=== PATIENT | female | born 1985 | race Caucasian/White ===

== ENCOUNTER 2018-02-27 20:55 | Outpatient (CLI) | payer OTHER ==
[~2018-02-27 20:55] MED LIST: ALPR.25T PO; CARB100T PO; CETI10CA PO; CTLP20T PO; FLT05NA16 NS; FLVX50T PO; HYDR1CAP2 PO; KEFLEX PO; NAPR250T PO; ORPH100T PO; QUET400T PO; RABE20TA PO; SRTR100T PO; ST JOHNS WART PO; SULF1TAB23 PO; TRAM50TA2 PO
== END 2018-02-28 06:34 | disposition home or self-care (01) ==
LOC: SLEEP 20:55
PROVIDERS: ATTEND Nurse Practitioner Family
DX: G47.33 Obstructive sleep apnea (adult) (pediatric) (principal)
CPT/HCPCS: 95810

== ENCOUNTER 2019-06-15 02:33 | Emergency (ER) | payer OTHER ==
--- NOTE | 2019-06-15 03:31 | NUR ---
PT REPORTED TO HAVE COME TO THE REGISTRAITION DESK AND SIGNED LWBS. ADVISED OF THE RISKS OF THIS CHOICE, SIGNED AMA FORM
== END 2019-06-15 03:05 | disposition left against medical advice (07) ==
LOC: EDUNIT# 02:33 → ER 02:37
DX: M54.9 Dorsalgia, unspecified (principal)

== ENCOUNTER 2020-12-31 14:05 | Emergency (ER) | payer SELFPAY ==
[~2020-12-31] VITALS: Ht 157.5 cm; Wt 72.6 kg
[2020-12-31] MEDS ORDERED: DICYCLOMINE 10 MG/ML (BENTYL) 2 ML AMP IM STA (14:20)
[2020-12-31 14:35] LABS: BASOPHILS # (AUTO) 0.1 10^3/uL (0.0-0.1); BASOPHILS % (AUTO) 0 % (0-10); EOSINOPHILS # (AUTO) 0.3 10^3/uL (0.0-0.3); EOSINOPHILS % (AUTO) 2 % (0-10); HEMATOCRIT 41 % (35-52); HEMOGLOBIN 13.3 g/dL (11.5-16.0); LYMPHOCYTES # (AUTO) 4.4 X 10^3 (1.0-4.0); LYMPHOCYTES % (AUTO) 38 % (12-44); MEAN CORPUSCULAR HEMOGLOBIN 28 pg (25-34); MEAN CORPUSCULAR HGB CONC 33 g/dL (32-36); MEAN CORPUSCULAR VOLUME 86 fL (80-99); MEAN PLATELET VOLUME 9.4 fL (9.0-12.2); MONOCYTES # (AUTO) 0.8 X 10^3 (0.0-1.0); MONOCYTES % (AUTO) 7 % (0-12); NEUTROPHILS % (AUTO) 52 % (42-75); PLATELET COUNT 401 10^3/uL (130-400); WHITE BLOOD COUNT 11.5 10^3/uL (4.3-11.0)
[2020-12-31 14:48] LABS: ALBUMIN 4.2 GM/DL (3.2-4.5); CHLORIDE 112 MMOL/L (98-107); POTASSIUM 3.5 MMOL/L (3.6-5.0); SODIUM 147 MMOL/L (135-145)
[2020-12-31 14:49] LABS: CALCIUM 9.5 MG/DL (8.5-10.1)
[2020-12-31 14:50] LABS: GLUCOSE 117 MG/DL (70-105)
[2020-12-31 14:51] LABS: TOTAL PROTEIN 7.5 GM/DL (6.4-8.2)
[2020-12-31 14:52] LABS: BILIRUBIN,TOTAL 0.4 MG/DL (0.1-1.0); CARBON DIOXIDE 24 MMOL/L (21-32)
[2020-12-31 14:54] LABS: ALKALINE PHOSPHATASE 93 U/L (40-136); CREATININE SERUM 0.83 MG/DL (0.60-1.30); GFR ESTIMATED > 60
[2020-12-31 14:55] LABS: BUN/CREATININE RATIO 12
[2020-12-31 14:57] LABS: ALANINE AMINOTRANSFERASE 48 U/L (0-55); LIPASE 133 U/L (8-78)
--- NOTE | 2020-12-31 15:00 | ED Abdominal Pain ---
General Chief Complaint: Abdominal/GI Problems Stated Complaint: ABD PAIN Nursing Triage Note: PT BROUGHT IN BY [facility] FROM [facility] WITH COMPLAINT OF SUDDEN ONSET ABD PAIN AND NAUSEA. PT STATES PAIN STARTED SUDDENLY AFTER EATING LUNCH IN EPIGASTRIC REGION. LAST BM THIS MORNING. PT WAS GIVEN 50 FENTANYL AND 4 ZOFRAN BY EMS. Sepsis Screen: No Definite Risk Source of Information: Patient, EMS Exam Limitations: No Limitations History of Present Illness Date Seen by Provider: December 31, 2020 Time Seen by Provider: 14:08 Initial Comments Patient is a 35-year-old female who presents to the emergency department today with a chief complaint of epigastric and right upper quadrant abdominal pain. Patient states the pain started shortly after eating some ham salad and cottage cheese while at work today. She began feeling hot and clammy and like she was going to pass out. She states shortly after the hot and clammy sensation she had an acute onset of the pain followed by nausea. She has never had pain quite like this before. She has had an episode of pancreatitis in the past many years ago and she states the pain is slightly reminiscent of this. She has no chronic illnesses. No recent fevers, chills, nausea or vomiting or diarrhea. No problems with urination. States that she cannot be , takes the Depo shot. Denies any trauma. States her nausea is improved after EMS gave her nausea medications and fentanyl. Currently rating her pain a "7". All other review of systems reviewed and negative except as stated above. Timing/Duration: 1-3 Hours Severity/Quality: Severe, Aching, Stabbing Location: Epigastric Radiation: Back Activities at Onset: Activity Modifying Factors: Improves With Analgesics, Improves With Lying down Associated Symptoms: Diaphoresis, Nausea/Vomiting, Weakness Allergies and Home Medications Allergies Coded Allergies: No Known Drug Allergies (Unverified , 04/24/10) Home Medications Cetirizine Hcl 10 Mg Capsule, 10 MG PO DAILY, (Reported) Dicyclomine HCl 20 Mg Tablet, 20 MG PO Q6H PRN for abdominal pain Prescribed by: KISHAN AU on 12/31/20 151 Fluticasone Propionate 16 Gm [place], 1 SPRAY NS BID, (Reported) Naproxen 250 Mg Tablet, 250 MG PO TID Prescribed by: JASON SCHULTZ on 10/17/141949 Ondansetron 4 Mg Tab.rapdis, 4 MG PO Q8H PRN for nausea and vomiting Prescribed by: KISHAN AU on 12/31/20 1518 Orphenadrine Citrate 100 Mg Tablet.sa, 100 MG PO BID PRN for PAIN Prescribed by: JASON SCHULTZ on 10/17/141949 Sertraline Hcl 100 Mg Tab, 100 MG PO DAILY, (Reported) Sulfamethoxazole/Trimethoprim 1 Tab Tablet, 1 TAB PO BID Prescribed by: LAZARO HURD on 12/15/131901 Tramadol Hcl 50 Mg Tablet, 50 MG PO Q4H PRN for PAIN Prescribed by: LAZARO HURD on 12/15/131901 [[facility]] , 1 TAB PO BID, (Reported) Patient Home Medication List Home Medication List Reviewed: Yes Review of Systems Review of Systems Constitutional: see HPI EENTM: No Symptoms Reported Respiratory: No Symptoms Reported Cardiovascular: No Symptoms Reported Gastrointestinal: Abdominal Pain, Nausea Genitourinary: No Symptoms Reported Musculoskeletal: no symptoms reported Skin: other (Diaphoresis) Psychiatric/Neurological: No Symptoms Reported All Other Systems Reviewed Negative Unless Noted: Yes Past Usvulsq-Askqet-Fltusf Hx Patient Social History Alcohol Use: Denies Use Smoking Status: Current Everyday Smoker Type Used: Cigarettes Recent Infectious Disease Expo: No Immunizations Up To Date Tetanus Booster (TDap): Less than 5yrs Seasonal Allergies Seasonal Allergies: Yes Past Medical History Surgeries: Yes (SOFT CLEFT PALATE SURG, FINGER) Respiratory: No Cardiac: No Neurological: No Reproductive Disorders: No Gastrointestinal: No Musculoskeletal: No Endocrine: No Cancer: No Psychosocial: Yes Anxiety, Bipolar Integumentary: No Blood Disorders: No Family Medical History Hypertension Physical Exam Vital Signs Vital Signs - First Documented 12/31/20 14:05 Pulse 77 Resp 18 B/P (MAP) 143/99 (114) Pulse Ox 100 O2 Delivery Room Air Capillary Refill : Less Than 3 Seconds Height/Weight/BMI Height: 5'2" Weight: 115lbs. oz. 52.774187zd; 29.00 BMI Method:Stated General Appearance: WD/WN, mild distress HEENT: PERRL/EOMI Neck: full range of motion Respiratory: lungs clear, normal breath sounds, no respiratory distress Cardiovascular: regular rate, rhythm Gastrointestinal: soft, abnormal bowel sounds, tenderness (Epigastric and right upper quadrant tenderness) Neurologic/Psychiatric: alert, normal mood/affect, oriented x 3 Skin: normal color, warm/dry Progress/Results/Core Measures Results/Orders Lab Results Laboratory Tests Test 12/31/20 14:22 Range/Units White Blood Count 11.5 H 4.3-11.0 10^3/uL Red Blood Count 4.70 3.80-5.11 10^6/uL Hemoglobin 13.3 11.5-16.0 g/dL Hematocrit 41 35-52 % Mean Corpuscular Volume 86 80-99 fL Mean Corpuscular Hemoglobin 28 25-34 pg Mean Corpuscular Hemoglobin Concent 33 32-36 g/dL Red Cell Distribution Width 14.5 10.0-14.5 % Platelet Count 401 H 130-400 10^3/uL Mean Platelet Volume 9.4 9.0-12.2 fL Immature Granulocyte % (Auto) 0 % Neutrophils (%) (Auto) 52 42-75 % Lymphocytes (%) (Auto) 38 12-44 % Monocytes (%) (Auto) 7 0-12 % Eosinophils (%) (Auto) 2 0-10 % Basophils (%) (Auto) 0 0-10 % Neutrophils # (Auto) 6.0 1.8-7.8 X 10^3 Lymphocytes # (Auto) 4.4 H 1.0-4.0 X 10^3 Monocytes # (Auto) 0.8 0.0-1.0 X 10^3 Eosinophils # (Auto) 0.3 0.0-0.3 10^3/uL Basophils # (Auto) 0.1 0.0-0.1 10^3/uL Immature Granulocyte # (Auto) 0.0 0.0-0.1 10^3/uL Sodium Level 147 H 135-145 MMOL/L Potassium Level 3.5 L 3.6-5.0 MMOL/L Chloride Level 112 H 98-107 MMOL/L Carbon Dioxide Level 24 21-32 MMOL/L Anion Gap 11 5-14 MMOL/L Blood Urea Nitrogen 10 7-18 MG/DL Creatinine 0.83 0.60-1.30 MG/DL Estimat Glomerular Filtration Rate > 60 BUN/Creatinine Ratio 12 Glucose Level 117 H 70-105 MG/DL Calcium Level 9.5 8.5-10.1 MG/DL Corrected Calcium 9.3 8.5-10.1 MG/DL Total Bilirubin 0.4 0.1-1.0 MG/DL Aspartate Amino Transf (AST/SGOT) 50 H 5-34 U/L Alanine Aminotransferase (ALT/SGPT) 48 0-55 U/L Alkaline Phosphatase 93 40-136 U/L Total Protein 7.5 6.4-8.2 GM/DL Albumin 4.2 3.2-4.5 GM/DL Lipase 133 H 8-78 U/L My Orders Orders - KISHAN AU MD Cbc With Automated Diff (12/31/20 14:17) Comprehensive Metabolic Panel (12/31/20 14:17) Lipase (12/31/20 14:17) Ed Iv/Invasive Line Start (12/31/20 14:17) Dicyclomine Injection (Bentyl Injection) (12/31/20 14:20) Fentanyl Inj (Sublimaze Injection) (12/31/20 15:30) Fentanyl Inj (Sublimaze Injection) (12/31/20 15:16) Us Gallbladder [id number] (12/31/20 15:44) Morphine Injection (Morphine Injection (12/31/20 17:11) Medications Given in ED Current Medications Medications Dose Ordered Sig/Ruben Route Start Time Stop Time Status Last Admin Dose Admin Fentanyl Citrate 50 mcg ONCE ONCE IVP 12/31/20 15:30 12/31/20 15:31 DC 12/31/20 15:23 50 MCG Vital Signs/I&O 12/31/20 14:05 Pulse 77 Resp 18 B/P (MAP) 143/99 (114) Pulse Ox 100 O2 Delivery Room Air Blood Pressure Mean: 114 Progress Progress Note : Time: 15:18 Progress Note Patient reports her pain is improved down to a "5". Patient states that she feels comfortable to go home and sleep. I have advised the patient to follow-up closely with [facility] to see about getting a gallbladder ultrasound. I am sending her home with prescriptions for Bentyl and Zofran. I have advised her to avoid fatty foods. She verbalizes understanding. Patient has no clinical or objective findings to warrant further studies from the emergency department at this time. All questions are sought and answered. Patient is stable for discharge. 1545 Notified by nursing staff that the patient had an increase in her pain just prior to discharge. 50 mcg of fentanyl is given. Gallbladder ultrasound is ordered. 1718 Patient's gallbladder ultrasound has been reviewed, she has multiple tiny stones versus sludge in the gallbladder without evidence of pericholecystic fluid, gallbladder wall thickening or common bile duct dilatation. Patient will be sent home as previously dictated. Will encourage follow-up with her primary care as she may ultimately need a HIDA scan. Patient is treated with 4 mg of morphine here in the emergency department with better resolution of her pain symptoms. Diagnostic Imaging Diagonstic Imaging: Ultrasound Comments [facility] [place] NAME: RANDY TROY [facility] REC#: [id number] PT STATUS: REG ER : 1985 PHYSICIAN: KISHAN AU MD ADMIT DATE: 12/31/20/ER Draft Date of Exam:12/31/20 US GALLBLADDER [id number] PROCEDURE: US Gallbladder. TECHNIQUE: Multiple real-time grayscale images were obtained over the right upper quadrant in various projections. INDICATION: Right upper quadrant pain, nausea, vomiting. COMPARISON: None available. FINDINGS: The liver demonstrates diffusely increased echogenicity throughout with poor acoustic transmission without focal hepatic mass. Normal direction of flow within the main portal vein. Multiple tiny hyperechoic filling defects are noted associated with the gallbladder wall, felt related to minimal sludge and/or stones versus very tiny polyps. No evidence of gallbladder wall thickening or pericholecystic fluid. The common bile duct is within normal limits measuring 0.4 cm. The pancreas is not well seen secondary to overlying bowel gas. Visualized portions of the abdominal aorta and inferior vena cava are unremarkable. The right kidney is unremarkable without evidence of hydronephrosis. No significant free fluid. The stomach is noted to be filled with fluid and enteric contents. IMPRESSION: No evidence of acute cholecystitis with minimal sludge and/or stones versus very tiny gallbladder polyps present. Fatty infiltration of the liver. The stomach is filled with fluid and enteric contents though the patient has been nothing by mouth for approximately 4-5 hours. This could relate to delayed gastric emptying versus bowel obstruction versus the patient not actually being nothing by mouth for 4-5 hours. Dictated on workstation # [id number] Dict: 12/31/20 1657 Trans: 12/31/20 1712 [facility] [id number] Interpreted by: VIBHA VITALE MD Electronically signed by: Departure Impression Primary Impression: Abdominal pain Qualified Codes: R10.11 - Right upper quadrant pain Additional Impression: Biliary colic Disposition: 01 HOME, SELF-CARE Condition: Stable Departure-Patient Inst. Decision time for Depature: 15:13 Referrals: [facility] (PCP/Family) Primary Care Physician Patient Instructions: Abdominal Pain, Adult ED Add. Discharge Instructions: Avoid fatty foods because they will irritate your gallbladder. Take the bentyl every 6 hours, 30minutes before eating. This will help for pain. Zofran as needed for nausea and vomiting. Come back to the Emergency Department if you have any return of worsening pain, especially with fever, vomiting, or other emergent concerns. Follow up with [facility] to see about getting an ultrasound of your gallbladder. Scripts Hydrocodone/Acetaminophen (Hydrocodone-Acetamin 5-325 mg) 1 Each Tablet 1 TAB PO Q6H PRN for PAIN-MODERATE (5-7), #12 TAB Prov: KISHAN AU MD 12/31/20 Ondansetron (Ondansetron Odt) 4 Mg Tab.rapdis 4 MG PO Q8H PRN for nausea and vomiting, #20 TAB Prov: KISHAN AU MD 12/31/20 Dicyclomine HCl (Dicyclomine HCl) 20 Mg Tablet 20 MG PO Q6H PRN for abdominal pain, #30 TAB Prov: KISHAN AU MD 12/31/20 KISHAN AU MD December 31, 2020 15:00
[2020-12-31] MEDS ORDERED: fentaNYL INJ 100 MCG/2 ML AMP ONE (15:16)
[2020-12-31] MEDS ORDERED: ONDA4TAB11 PO (15:18)
[2020-12-31] MEDS ORDERED: DICY20TA10 PO (15:18)
[2020-12-31] MEDS ORDERED: fentaNYL INJ 100 MCG/2 ML AMP IVP ONE (15:30)
[2020-12-31] MEDS ORDERED: morphine INJ 10 MG/ML 1ML (SYR OR VIAL) IVP STA (17:11)
--- NOTE | 2020-12-31 17:12 | Diagnostic Imaging Report ---
PROCEDURE: US Gallbladder. TECHNIQUE: Multiple real-time grayscale images were obtained over the right upper quadrant in various projections. INDICATION: Right upper quadrant pain, nausea, vomiting. COMPARISON: None available. FINDINGS: The liver demonstrates diffusely increased echogenicity throughout with poor acoustic transmission without focal hepatic mass. Normal direction of flow within the main portal vein. Multiple tiny hyperechoic filling defects are noted associated with the gallbladder wall, felt related to minimal sludge and/or stones versus very tiny polyps. No evidence of gallbladder wall thickening or pericholecystic fluid. The common bile duct is within normal limits measuring 0.4 cm. The pancreas is not well seen secondary to overlying bowel gas. Visualized portions of the abdominal aorta and inferior vena cava are unremarkable. The right kidney is unremarkable without evidence of hydronephrosis. No significant free fluid. The stomach is noted to be filled with fluid and enteric contents. IMPRESSION: No evidence of acute cholecystitis with minimal sludge and/or stones versus very tiny gallbladder polyps present. Fatty infiltration of the liver. The stomach is filled with fluid and enteric contents though the patient has been nothing by mouth for approximately 4-5 hours. This could relate to delayed gastric emptying versus bowel obstruction versus the patient not actually being nothing by mouth for 4-5 hours. Dictated by: Dictated on workstation # [id number]
[2020-12-31] MEDS ORDERED: ACHD5005 PO (17:20)
[2020-12-31 18:03] VITALS: BP 140/86
== END 2020-12-31 18:03 | disposition home or self-care (01) ==
LOC: EDUNIT# 14:13 → ER 14:14
DX: K80.50 Calculus of bile duct without cholangitis or cholecystitis without obstruction (principal); F41.9 Anxiety disorder, unspecified; F17.210 Nicotine dependence, cigarettes, uncomplicated; Z79.899 Other long term (current) drug therapy
CPT/HCPCS: 36415; 76705; 80053; 83690; 85025

== ENCOUNTER → 2021-02-07 | Outpatient (CLI) | payer OTHER ==
[~2021-02-07] MED LIST changes: +ACHD5005 PO; +CATHETER FLUSH 10 ML SYR IV PRN; +DICY20TA10 PO; +ONDA4TAB11 PO
--- NOTE | 2021-02-07 15:56 | Diagnostic Imaging Report ---
EXAMINATION: Gallbladder scintigraphy HISTORY: Abdominal pain. COMPARISON: Gallbladder ultrasound 12/31/2020. TECHNIQUE: Anterior scintigraphic imaging of the abdomen was performed after the intravenous administration of 4.55 mCi Tc-99m Choletec. FINDINGS: The upper abdomen was imaged for 130 minutes with the gamma camera. There is prompt homogeneous uptake of radiopharmaceutical by the liver. There is activity in the common duct by 15 minutes. There is delayed filling of the gallbladder, seen by 75 minutes. Small bowel activity is seen by 15 minutes. At 55 minutes, the patient received 8 ounces of ensure. After an additional 60 minutes, the gallbladder ejection fraction was calculated to be 86% (normal is >35%) IMPRESSION: 1. Delayed filling of the gallbladder which can be seen with chronic cholecystitis. 2. Normal gallbladder ejection fraction. Dictated by: Dictated on workstation # [id number]
== END ==
LOC: CARD 11:23
PROVIDERS: ATTEND Nurse Practitioner Family
DX: R10.9 Unspecified abdominal pain (principal)
CPT/HCPCS: 78227; A9537

== ENCOUNTER 2021-02-13 05:37 | Outpatient (CLI) | payer OTHER ==
[~2021-02-13] VITALS: Ht 157.5 cm; Wt 70.2 kg
[~2021-02-13 05:37] MED LIST changes: -CATHETER FLUSH 10 ML SYR IV PRN
[2021-02-13] MEDS ORDERED: OMEP20TA7 PO (13:35)
[2021-02-13] MEDS ORDERED: ESCI20TA39 PO (13:35)
[2021-02-13] MEDS ORDERED: ROPI0.253 PO (13:35)
== END 2021-02-13 13:40 | disposition home or self-care (01) ==
LOC: PREOP 05:37
PROVIDERS: ATTEND Surgery
DX: Z01.818 Encounter for other preprocedural examination (principal)

== ENCOUNTER 2021-02-20 07:00 | Day surgery (SDC) | payer OTHER ==
[~2021-02-20] VITALS: Ht 157 cm; Wt 70.2 kg
[2021-02-20] VITALS (11 sets, daily range): BP systolic 106–141; BP diastolic 81–93
[~2021-02-20 07:00] MED LIST changes: +ESCI20TA39 PO; +OMEP20TA7 PO; +ROPI0.253 PO
[2021-02-20] MEDS ORDERED: ceFAZolin 2 GM IV Premixed 50 ML IV ONE (07:15)
[2021-02-20] MEDS ORDERED: ROCURONIUM 10 MG/ML 5 ML SYRINGE IV ONE (07:21)
[2021-02-20] MEDS ORDERED: ONDANSETRON 4 MG/2 ML (SDV) Z0FRAN ONE ×2 (07:21→09:17)
[2021-02-20] MEDS ORDERED: proPOfol 200 MG/20 ML (DIPRIVAN) VIAL IV ONE (07:21)
[2021-02-20] MEDS ORDERED: LIDOCAINE PF 2% 5 ML (XYLOCAINE) VIAL ONE (07:21)
[2021-02-20] MEDS ORDERED: SEVOFLURANE (ULTANE) 15 ML INHAL SOLN ONE ×2 (07:21→08:48)
[2021-02-20] MEDS ORDERED: MIDAZOLAM 2 MG/2 ML (VERSED) VIAL ONE (07:22)
[2021-02-20] MEDS ORDERED: fentaNYL INJ 100 MCG/2 ML AMP ONE (07:22)
[2021-02-20] MEDS ORDERED: LIDOCAINE/EPI 1%-1:100,000 (XYLOCAINE) 20ML ONE (07:33)
[2021-02-20] MEDS: LACTATED RINGERS 1,000 ML IV PRN ×2 (07:48→09:22)
[2021-02-20] MEDS ORDERED: GLYCOPYRROLATE 0.2 MG/ML (ROBINUL) 2 ML VIAL ONE (08:48)
[2021-02-20] MEDS ORDERED: NEOSTIGMINE 3 MG/3 ML VIAL ONE (08:48)
--- NOTE | 2021-02-20 08:52 | Progress Note-Post Operative ---
Post-Operative Progess Note Surgeon (s)/Production Inspector (s) Surgeon KATHERINE VIDAL DO Production Inspector: Arnie Pre-Operative Diagnosis chronic cholelithiasis with cholecystitis Post-Operative Diagnosis same plus adhesions Procedure & Operative Findings Date of Procedure 02/20/21 Procedure Performed/Findings PROCEDURE: Laparoscopic cholecystectomy with intraoperative cholangiogram. COMPLICATIONS: None. PROCEDURE: The patient was taken to the operating suite and was prepped and draped in sterile fashion. A surgical pause was performed. Just superior to the umbilicus, a 12 mm incision was made. Dissection was taken down to the fascia, which was then scored and grasped with a Sonny and the abdomen was then entered. A 0 Vicryl suture was placed in a [id number] fashion and a Otoole trocar was placed and secured. Pneumoperitoneum was achieved. A 5mm trochar place in the subxyphoid and 2 in the right upper quadrant. Adhesions noted in the RUQ. The gallbladder was then grasped and elevated. The cystic duct, and cystic artery were then dissected out. Clip was placed on the distal portion of the cystic duct which was then partially transected. An arrow catheter was inserted into the duct. The cholangiogram was then performed. No filing defects and contrast made its way into the duodenum. Catheter removed. Clips were placed on proximal portion of the cystic duct and then the duct was then transected. Clips were placed along the proximal and distal portion of the cystic artery which was then transected. Hook cautery was used to dissect the gallbladder from the gallbladder fossa achieving hemostasis. The gallbladder was placed in an Endobag and removed through the 12 mm trocar site. The abdomen was then reinspected. Copious amounts of irrigation were used to irrigate the abdomen and there were no signs of active bleeding. Hemostasis had been achieved. The 12 mm fascial defect was then closed with 0 Vicryl suture that had been placed in a [id number] fashion. The abdomen was then desufflated, the trocars were removed. The abdomen was then washed and dried. The skin was then closed using 4-0 Monocryl in a subcuticular fashion. The abdomen was washed and dried and Skin Affix was place over incisions. Patient tolerated the procedure well without any complications and was taken to the recovery room in stable condition. Dr. Gaitan assisted on this case helping to make incisions, close incisions, identify anatomy and hold anatomy out of the way. Anesthesia Type GET Estimated Blood Loss Estimated blood loss (mL): scant Specimens/Packing Specimens Removed GB and contents KATHERINE VIDAL DO Feb 20, 2021 08:52
[2021-02-20] MEDS ORDERED: ACHD5005 PO (08:53)
--- NOTE | 2021-02-20 08:55 | Discharge Inst-Surgical ---
Discharge Inst-Surgical Depart Medication/Instructions New, Converted or Re-Newed RX: Transmitted to Pharmacy Patient Instructions Follow up Appt: Make appointment for 1 week. [phone] Instructions: No lifting greater than 20 pounds. No strenuous activity. May shower in 24 hours, no tub bath or soaking. Use incentive spirometer at home as directed. No Smoking Skin/Wound Care: May remove bandages in am. You need to leave the Dermabond on incision it will fall off on it's own. Symptoms to Report: Appetite Changes, Extremity Discoloration, Numbness/Tingling, Swelling Increased, Bleeding Excessive, Eyesight Changes, Pain Increased, Urine Color Change, Constipation(Persistent), Fever over 101 degree F, Pain/Pressure in chest, Urinating Difficulty, Cough Up/Vomit Blood, Heart Beat Irreg/Pounding, Pain/Pressure in jaw, Cramps in feet or legs, Lightheadedness, Pain/Pressure in shoulder, Diarrhea(Persistent), Memory Changes Suddenly, Questions/Concerns, Weight gain consecutive days, Dizziness/Fainting, Nausea/Vomiting, Shortness of Breath, Weight gain over 2 pounds If questions or concerns contact your physician Or seek help at emergency department. Activity Activity as Tolerated: Yes Activity Instructions: Avoid Stress to Incision Driving Instructions: No Driving/Refer to Diet Discharge Diet: Avoid Fatty Foods, Low Fat/Low Cholesterol Diet After 24 Hours: Clear Liquid if Nauseous If Any Problems/Questions/Issu: Contact Your Physician, Go to Emergency Room Skin/Wound Care Infection Signs and Symptoms: Increased Redness, Foul Odor of Wound, Increased Drainage, Skin Itchy or Has a Rash, Increased Swelling, Temperature Above 101 F Wound Care Comment: heating pad to shoulder or neck tonight for pain Bathing Instructions: Shower Stitches/Jeannie/Dermabond Dis: Dermabond Ice Pack: Ice On and Off Site KATHERINE VIDAL DO Feb 20, 2021 08:55
--- NOTE | 2021-02-20 09:03 | Diagnostic Imaging Report ---
INDICATION: Fluoroscopy during intraoperative cholangiogram. FINDINGS: Fluoroscopy was provided in the OR during intraoperative cholangiogram. 12 seconds of fluoroscopic time was utilized. 70 images were obtained. Images demonstrate contrast being injected via the cystic duct remnant. The intrahepatic and extrahepatic bile ducts are of normal caliber. No filling defects are seen to suggest a retained stone. Contrast flows into the duodenum. IMPRESSION: Fluoroscopy during intraoperative cholangiogram. Dictated by: Dictated on workstation # [id number]
[2021-02-20] MEDS ORDERED: morphine INJ 10 MG/ML 1ML (SYR OR VIAL) IVP ONE (09:15)
[2021-02-20] MEDS ORDERED: ONDANSETRON 4 MG/2 ML (SDV) Z0FRAN IVP PRN (09:15)
[2021-02-20] MEDS ORDERED: fentaNYL INJ 100 MCG/2 ML AMP IVP ONE (09:15)
--- NOTE | 2021-02-20 09:15 | Anesthesia-General Post-Op ---
General Patient Condition Mental Status/LOC: Same as Preop Cardiovascular: Satisfactory Nausea/Vomiting: Absent Respiratory: Satisfactory Pain: Controlled Complications: Absent Post Op Complications Complications None Follow Up Care/Instructions Patient Instructions None needed. Anesthesia/Patient Condition Patient Condition Patient is doing well, no complaints, stable vital signs, no apparent adverse anesthesia problems. No complications reported per nursing. JOY YOST CRNA Feb 20, 2021 09:15
[2021-02-20] MEDS ORDERED: morphine INJ 10 MG/ML 1ML (SYR OR VIAL) ONE (09:17)
[2021-02-20] MEDS ORDERED: HYDROcodone/APAP 5 MG/325 MG (LORTAB) TAB PO ONE (10:15)
[2021-02-20] MEDS ORDERED: HYDROcodone/APAP 5 MG/325 MG (LORTAB) TAB ONE (10:17)
== END 2021-02-20 12:10 | disposition home or self-care (01) ==
LOC: SDC 07:00
PROVIDERS: ATTEND Surgery
DX: K80.10 Calculus of gallbladder with chronic cholecystitis without obstruction (principal); K21.9 Gastro-esophageal reflux disease without esophagitis; F41.9 Anxiety disorder, unspecified; F17.210 Nicotine dependence, cigarettes, uncomplicated; Z79.899 Other long term (current) drug therapy; Z79.891 Long term (current) use of opiate analgesic; Z83.3 Family history of diabetes mellitus; Z82.49 Family history of ischemic heart disease and other diseases of the circulatory system
CPT/HCPCS: 76000; 84703; 87081; 94664

== ENCOUNTER 2022-04-28 09:23 | Emergency (ER) | payer SELFPAY ==
[~2022-04-28] VITALS: Ht 157.5 cm; Wt 75.0 kg
[~2022-04-28 09:23] MED LIST changes: +DICY20TA PO; -DICY20TA10 PO; +OMEP20TA56 PO; -OMEP20TA7 PO
--- NOTE | 2022-04-28 10:09 | ED Respiratory ---
General Chief Complaint: COVID19 Suspect/Confirmed Stated Complaint: COVID + 04/23 - SOA Source: patient Exam Limitations: no limitations History of Present Illness Date Seen by Provider: Apr 28, 2022 Time Seen by Provider: 09:55 Initial Comments 36-year-old female presents to the emergency department today for shortness of breath. She started to have body aches chills and shortness of breath on Thursday of last week. Thursday she tested positive for COVID-19. States symptoms have progressed since then. She has ear pain bilaterally as well as a sore throat. She has diffuse body aches and cough with some shortness of breath. No chest pains. Allergies and Home Medications Allergies Coded Allergies: No Known Drug Allergies (Unverified , 04/24/10) Patient Home Medication List Home Medication List Reviewed: Yes Escitalopram Oxalate (Escitalopram Oxalate) 20 Mg Tablet, 20 MG PO DAILY, (Reported) Entered as Reported by: KATIE CALZADA on 02/13/21 1335 Hydrocodone Bit/Acetaminophen (HYDROcodone/APAP 5 MG/325 MG TAB) 1 Tab Tab, 1 TAB PO Q8H PRN for PAIN-MODERATE (5-7) Prescribed by: KATHERINE VIDAL on 02/20/21 0854 Omeprazole (Omeprazole) 20 Mg Tablet.dr, 20 MG PO DAILY, (Reported) Entered as Reported by: KATIE CALZADA on 02/13/21 1335 Ropinirole HCl (Ropinirole HCl) 0.25 Mg Tablet, 0.25 MG PO TID, (Reported) Entered as Reported by: KATIE CALZADA on 02/13/21 1335 Review of Systems Review of Systems Constitutional: chills, fever EENTM: ear pain, throat pain Respiratory: cough, short of breath Cardiovascular: no symptoms reported Gastrointestinal: no symptoms reported Genitourinary: no symptoms reported Musculoskeletal: other (Body aches) Skin: no symptoms reported Psychiatric/Neurological: No Symptoms Reported Hematologic/Lymphatic: No Symptoms Reported Immunological/Allergic: no symptoms reported Past Sqnwmdy-Usseze-Eoskth Hx Patient Social History Tobacco Use?: No Use of E-Cig and/or Vaping dev: No Substance use?: No Alcohol Use?: No Immunizations Up To Date Tetanus Booster (TDap): Less than 5yrs Seasonal Allergies Seasonal Allergies: Yes Past Medical History Surgeries: Yes (SOFT CLEFT PALATE SURG, FINGER) Respiratory: No Cardiac: No Neurological: No Reproductive Disorders: No Genitourinary: No Gastrointestinal: Yes Gall Bladder Disease Musculoskeletal: No Endocrine: No HEENT: No Cancer: No Psychosocial: Yes Anxiety, Bipolar Integumentary: No Blood Disorders: No Family Medical History Reviewed Nursing Family Hx No Pertinent Family Hx, Hypertension Physical Exam Vital Signs - First Documented Capillary Refill : Height: 5'2" Weight: 115lbs. oz. [id number]; 28.47 BMI Method:Stated General Appearance: WD/WN, no apparent distress HEENT: PERRL/EOMI, normal ENT inspection, TMs normal, pharynx normal Neck: non-tender, full range of motion, supple, normal inspection Respiratory: chest non-tender, lungs clear, normal breath sounds, no respiratory distress, no accessory muscle use Cardiovascular: regular rate, rhythm, no edema, no gallop, no JVD, no murmur Gastrointestinal: normal bowel sounds, non tender, soft, no organomegaly, no pu lsatile mass Neurologic/Psychiatric: alert, normal mood/affect, oriented x 3 Skin: normal color, warm/dry Progress/Results/Core Measures Suspected Sepsis SIRS Temperature: Pulse: Respiratory Rate: Blood Pressure / Mean: Results/Orders My Orders Orders - VÍCTOR ALFARO DO Chest 1 View, Ap/Pa Only (04/28/22 10:07) Vital Signs/I&O 04/28/22 04/28/22 09:40 09:40 Temp 37.1 Pulse 100 Resp 18 B/P (MAP) 126/83 (97) Pulse Ox 98 O2 Delivery Room Air Room Air Capillary Refill : Departure Impression Primary Impression: COVID-19 Disposition: 01 HOME, SELF-CARE Condition: Stable Departure-Patient Inst. Referrals: [facility] (PCP/Family) Primary Care Physician Patient Instructions: COVID-19 (DC) Add. Discharge Instructions: Take the steroids as prescribed until gone. Follow-up with primary doctor in the next 3 to 4 days should your symptoms not improved. Return to the emergency department should your symptoms change in any way concerning to you. All discharge instructions reviewed with patient and/or family. Voiced understanding. Scripts Prednisone (Prednisone) 50 Mg Tab 50 MG PO DAILY for 3 Days, #3 TAB Prov: VÍCTOR ALFARO DO 04/28/22 VÍCTOR ALFARO DO Apr 28, 2022 10:09
[2022-04-28] MEDS ORDERED: PRD50T PO (10:30)
--- NOTE | 2022-04-28 10:35 | Diagnostic Imaging Report ---
Indication: Dyspnea, followup COVID pneumonia. Comparison: 10/17/2014. Discussion: Single portable upright view of the chest was obtained. Mildly elevated right hemidiaphragm. Normal heart size. No dense consolidation identified. There may be some subtle groundglass infiltrates within the right lung base which could be seen with viral pneumonia. No pleural fluid or pneumothorax. No osseous abnormality. Impression: 1. Subtle infiltrates within the right lung base consistent with viral pneumonia. Dictated by: Dictated on workstation # [id number]
[2022-04-28 10:39] VITALS: BP 119/92
== END 2022-04-28 10:35 | disposition home or self-care (01) ==
LOC: EDUNIT# 09:23 → ER 09:25
DX: U07.1 COVID-19 (principal); Z73.0 Burn-out
CPT/HCPCS: 71045

== ENCOUNTER → 2022-06-27 | Outpatient (CLI) | payer SELFPAY ==
[~2022-06-27] MED LIST changes: +PRD50T PO
--- NOTE | 2022-06-27 11:15 | Diagnostic Imaging Report ---
PROCEDURE: MR imaging cervical spine without contrast. TECHNIQUE: Multiplanar, multisequence MR imaging of the cervical spine was performed without contrast. INDICATION: Right arm weakness, known injury. COMPARISON: CT from 10/17/2014 FINDINGS: There is slight reversal of the cervical lordosis centered at C5. No spondylolisthesis is seen. Vertebral body heights are preserved. There is mild disc height loss at C5-C6. No cord signal changes are seen. Soft tissues about the cervical spine demonstrate no acute abnormality. C2-C3: No disc bulge. No spinal canal or foraminal stenosis. C3-C4: No disc bulge. No spinal canal or foraminal stenosis. C4-C5: No disc bulge. No spinal canal or foraminal stenosis. C5-C6: Posterior disc osteophyte complex, asymmetric to the right. This causes severe spinal canal stenosis with flattening of the spinal cord. No significant cord signal changes are appreciated. There is severe right foraminal stenosis and moderate left foraminal stenosis. C6-C7: Mild posterior disc osteophyte complex with moderate spinal canal stenosis. No right foraminal stenosis. Mild left foraminal narrowing. C7-T1: No disc bulge. No spinal canal or foraminal stenosis. IMPRESSION: 1. Degenerative change at C5-C6 causing severe spinal canal stenosis and flattening of the cord but no cord signal changes are seen at this time. There is severe right and moderate left foraminal stenosis. 2. Moderate spinal canal stenosis at C6-C7. Dictated by: Dictated on workstation # [id number]
== END ==
LOC: RAD 08:16
PROVIDERS: ATTEND Nurse Practitioner
DX: M47.22 Other spondylosis with radiculopathy, cervical region (principal); M48.02 Spinal stenosis, cervical region
CPT/HCPCS: 72141